=== PATIENT | male | born 1990 | race Caucasian/White ===

== ENCOUNTER 2024-06-15 12:26 | Emergency (ER) | payer OTHER ==
[~2024-06-15] VITALS: Ht 175.3 cm; Wt 113.6 kg
[2024-06-15 12:45] VITALS: BP 114/66; PULSE 72; RESP 18; TEMP 98.7
[2024-06-15] MEDS ORDERED: METO25TA3 PO (12:55)
[2024-06-15] MEDS ORDERED: AMOX875T2 PO (12:55)
[2024-06-15] MEDS ORDERED: OXYC-38 PO (14:23)
[2024-06-15] MEDS ORDERED: IBUP-1493 PO (14:23)
[2024-06-15] MEDS ORDERED: VALA500T PO (14:23)
[2024-06-15] MEDS: KETOROLAC TROMETHAMINE 60 MG/2 ML VIAL IM ONE (15:16)
== END 2024-06-15 15:40 | disposition home or self-care (01) ==
LOC: EMS 12:26
DX: B02.9 Zoster without complications (principal); I10 Essential (primary) hypertension; Z79.899 Other long term (current) drug therapy
CPT/HCPCS: 99283; 82962; 96372; J1885